=== PATIENT | female | born 1940 | race Caucasian/White ===

== ENCOUNTER 2016-09-03 17:13 | Emergency (ER) | payer OTHER ==
[~2016-09-03 17:13] MED LIST: CELEXA20 MG PO; ELAVIL 25 MG TA25 MG PO; HYDRALAZINE HCL50 MG PO; IPRAT-ALBUT 0.5-3 ML NEB; NORVASC 5 MG TAB5 MG PO; OMNICEF 300 MG300 MG PO; REQUIP0.25 MG PO; VISTARIL50 MG PO; ZESTRIL20 MG PO
[2016-09-03 18:10] LABS: HEMOGLOBIN 14.3 gm/dl (12.3-15.3); RED BLOOD COUNT 4.33 M/UL (4.00-5.10); WHITE BLOOD COUNT 9.8 K/UL (4.5-11.0)
[2016-09-03 18:36] LABS: BUN/CREATININE RATIO 20 (0-10)
== END 2016-09-03 21:17 | disposition home or self-care (01) ==
LOC: ER1 17:13
PROVIDERS: Emergency Medicine
DX: S39.91XA Unspecified injury of abdomen, initial encounter (principal); I10 Essential (primary) hypertension; V49.9XXA Car occupant (driver) (passenger) injured in unspecified traffic accident, initial encounter; Y93.89 Activity, other specified; Y92.410 Unspecified street and highway as the place of occurrence of the external cause
CPT/HCPCS: 80053; 81001; 85025; 85610; 85730; 99284; J7050; Q9962